=== PATIENT | female | born 1980 | race Two or more races ===

== ENCOUNTER 2018-12-21 11:27 | Emergency (ER) | payer MEDICAID ==
[~2018-12-21] VITALS: Ht 157.5 cm; Wt 59.0 kg
[2018-12-21] MEDS ORDERED: SODIUM CHLORIDE 0.9% 1,000 ML IVB ONE (11:46)
[2018-12-21] MEDS ORDERED: MORPHINE SULFATE 4 MG/ML SYR/VIAL IV ONE (12:00)
[2018-12-21] MEDS ORDERED: FAMOTIDINE (10MG/ML) 2ML VL IV ONE (12:00)
[2018-12-21] MEDS ORDERED: ONDANSETRON HCL 4 MG/2 ML VIAL IV ONE (12:00)
[2018-12-21 12:32] LABS: Alanine Aminotransferase 15 U/L (13-56); Albumin 3.9 g/dL (3.4-5.0); Anion Gap 5 (5-15); Aspartate Aminotransferase 6 U/L (15-37); BUN/Creatinine Ratio 13.7; Blood Urea Nitrogen 7 mg/dL (7-18); Calcium 8.8 mg/dL (8.5-10.1); Carbon Dioxide 25 mmol/L (21-32); Chloride 111 mmol/L (98-107); GFR African American 174 mL/min; GFR Non-African American 143 mL/min; Glucose 93 mg/dL (74-106); Lipase 129 U/L (73-393); Magnesium 2.4 mg/dL (1.6-2.6); Potassium 3.9 mmol/L (3.5-5.1); Sodium 141 mmol/L (136-145)
[2018-12-21 12:33] LABS: Basophils # (auto) 0 uL; Basophils % (auto) 0.5 % (0.0-2.0); Eosinophils # (auto) 0 uL; Eosinophils % (auto) 0.3 % (0.0-7.0); Hematocrit 41.8 % (36.0-46.0); Lymphocytes # (auto) 1.3 uL; Lymphocytes % (auto) 25.4 % (10.0-50.0); Mean Corpuscular Hemoglobin 29.1 pg (28.0-32.0); Mean Corpuscular Hgb Conc. 33.5 g/dL (32.0-36.0); Mean Corpuscular Volume 86.9 fL (80.0-100.0); Monocytes # (auto) 0.4 uL; Neutrophils # (auto) 3.3 uL; Neutrophils % (auto) 65.8 % (37.0-80.0); Nucleated Red Blood Cells % 0.1 %; Platelet Count (auto) 242 10^3/uL (140-450); Red Cell Distribution Width 13.1 % (11.8-14.3)
[2018-12-21 12:36] LABS: Alkaline Phosphatase 47 U/L (45-117); Bilirubin, Total 0.4 mg/dL (0.2-1.0)
[2018-12-21 13:00] LABS: Urine Bacteria FEW /hpf (None Seen); Urine Blood Negative /uL (Negative); Urine Specific Gravity 1.003 (1.001-1.035); Urine WBC 1 /hpf (0 - 5)
[2018-12-21 13:53] VITALS: BP 144/94
== END 2018-12-21 14:42 | disposition home or self-care (01) ==
LOC: ER 11:41
DX: R07.89 Other chest pain (principal); K29.00 Acute gastritis without bleeding
CPT/HCPCS: 36415; 76705; 80053; 81001; 83690; 83735; 84484; 85025; 93005; 94761; 96361; 96374; 96375; 99284; J2270; J2405; J3490; J7030

== ENCOUNTER 2019-08-07 15:51 | Emergency (ER) | payer MEDICAID ==
[~2019-08-07] VITALS: Ht 157.5 cm; Wt 63.5 kg
[2019-08-07 16:32] LABS: Basophils # (auto) 0 uL; Basophils % (auto) 0.5 % (0.0-2.0); Eosinophils # (auto) 0 uL; Eosinophils % (auto) 0.4 % (0.0-7.0); Hemoglobin 13.3 g/dL (12.2-16.2); Lymphocytes # (auto) 1.7 uL; Lymphocytes % (auto) 30.7 % (10.0-50.0); Mean Corpuscular Hemoglobin 27.8 pg (28.0-32.0); Mean Corpuscular Hgb Conc. 33.3 g/dL (32.0-36.0); Mean Corpuscular Volume 83.4 fL (80.0-100.0); Monocytes # (auto) 0.3 uL; Monocytes % (auto) 5.8 % (0.0-12.0); Neutrophils # (auto) 3.4 uL; Neutrophils % (auto) 62.6 % (37.0-80.0); Platelet Count (auto) 247 10^3/uL (140-450); Red Cell Distribution Width 13.4 % (11.8-14.3); White Blood Cell 5.5 10^3/uL (4.4-10.8)
[2019-08-07 16:54] LABS: Alanine Aminotransferase 13 U/L (13-56); Anion Gap 9 (5-15); Aspartate Aminotransferase 8 U/L (15-37); BUN/Creatinine Ratio 11.8; Blood Urea Nitrogen 6 mg/dL (7-18); Calcium 8.5 mg/dL (8.5-10.1); Carbon Dioxide 21 mmol/L (21-32); Chloride 110 mmol/L (98-107); GFR African American 174 mL/min; GFR Non-African American 143 mL/min; Glucose 92 mg/dL (74-106); Potassium 3.4 mmol/L (3.5-5.1); Sodium 140 mmol/L (136-145)
[2019-08-07 16:57] LABS: Alkaline Phosphatase 53 U/L (45-117); Bilirubin, Total 0.6 mg/dL (0.2-1.0); Total Protein 7.4 g/dL (6.4-8.2)
[2019-08-07] MEDS ORDERED: SODIUM CHLORIDE 0.9% 1,000 ML IV ONE (19:04)
[2019-08-07] MEDS ORDERED: IOHEXOL 350 MG/ML 100ML IJ ONE (19:09)
[2019-08-07 20:38] VITALS: BP 133/76
== END 2019-08-07 21:21 | disposition home or self-care (01) ==
LOC: ER 15:51
DX: R07.89 Other chest pain (principal); R06.02 Shortness of breath; R00.2 Palpitations
CPT/HCPCS: 36415; 71046; 71275; 80053; 84484; 85025; 85379; 93005; 99284; J7030; Q9967

== ENCOUNTER 2019-08-13 09:31 | Emergency (ER) | payer MEDICAID ==
[~2019-08-13] VITALS: Ht 157.5 cm; Wt 61.2 kg
[2019-08-13 09:48] VITALS: BP 124/78
== END 2019-08-13 13:10 | disposition home or self-care (01) ==
LOC: ER 09:31
DX: M79.604 Pain in right leg (principal)
CPT/HCPCS: 93971